=== PATIENT | female | born 1985 | race Caucasian/White ===

== ENCOUNTER → 2016-08-29 | Outpatient (CLI) | payer OTHER ==
[2016-08-29 16:47] LABS: CHLORIDE,CL 109 mmol/L (98-110); SODIUM,NA 141 mmol/L (136-146)
[2016-08-29 17:08] LABS: HIV12 AG/AB 4TH GEN W/REFLEX 0.1 (<1.0)
== END | disposition home or self-care (01) ==
LOC: MW.CHOBGYN 15:57
PROVIDERS: ATTEND Nurse Practitioner Women's Health
DX: Z11.3 Encounter for screening for infections with a predominantly sexual mode of transmission (principal); R19.00 Intra-abdominal and pelvic swelling, mass and lump, unspecified site; Z98.84 Bariatric surgery status
CPT/HCPCS: 36415; 80053; 82607; 82728; 84703; 85025; 86592; 87389; 87491; 87591; G0145

== ENCOUNTER → 2016-09-02 | Outpatient (CLI) | payer OTHER ==
--- NOTE | 2016-09-02 10:08 | US ---
EXAMINATION: Limited abdominal ultrasound HISTORY: Swelling COMPARISON: None TECHNIQUE: Grayscale and color Doppler images obtained of the midline abdomen. FINDINGS: There is no definite defect within the abdominal wall. No obvious subcutaneous mass. IMPRESSION: 1. No definite abdominal wall hernia, if confirmation is needed consider CT or MRI.
== END ==
LOC: MW.US 08:40
PROVIDERS: ATTEND Nurse Practitioner Women's Health
DX: R19.00 Intra-abdominal and pelvic swelling, mass and lump, unspecified site (principal)
CPT/HCPCS: 76700; 76700-26

== ENCOUNTER → 2016-10-03 | Outpatient (CLI) | payer OTHER | LOC: MW.CHOBGYN 12:00 | PROVIDERS: ATTEND Nurse Practitioner Women's Health | DX: D64.9 Anemia, unspecified (principal); E53.8 Deficiency of other specified B group vitamins; Z87.42 Personal history of other diseases of the female genital tract | CPT/HCPCS: 81025 ==

== ENCOUNTER 2017-07-25 15:54 | Emergency (ER) | payer BC, OTHER ==
--- NOTE | 2017-07-25 16:48 | EDM.PDOC ---
ED HPI GENERAL MEDICAL PROBLEM - General Chief Complaint: Lower Extremity Injury/Pain Stated Complaint: RT KNEE HURTS Time Seen by Provider: 07/25/17 16:44 Source of Information: Reports: Patient - History of Present Illness INITIAL COMMENTS - FREE TEXT/NARRATIVE: HISTORY AND PHYSICAL: History of present illness: [Patient presents with right knee pain she rates 4 out of 10 nonradiating no redness warmth or swelling no open lesion States she has a chronic knee condition since childhood in which her knee locks , yesterday, she was lifting moving some furniture as she was going up some steps her knee locked.. she fell down striking her right knee, it remained in this "locked" position almost sounding like more like a patellar subluxation. She then heard a pop and was able to use her knee again however she is afraid to bear weight on it due to discomfort. No fever nausea vomiting chills sweats no redness warmth or exudate no open lesion no chest pain shortness breath headache dizziness palpitation no bowel or urine symptoms ] Review of systems: As per history of present illness and below otherwise all systems reviewed and negative. Past medical history: As per history of present illness and as reviewed below otherwise noncontributory. Surgical history: As per history of present illness and as reviewed below otherwise noncontributory. Social history: No reported history of drug or alcohol abuse. Family history: As per history of present illness and as reviewed below otherwise noncontributory. Physical exam: HEENT: Atraumatic, normocephalic, pupils reactive, negative for conjunctival pallor or scleral icterus, mucous membranes moist, throat clear, neck supple, nontender, trachea midline. Lungs: Clear to auscultation, breath sounds equal bilaterally, chest nontender. Heart: S1S2, regular, negative for clicks, rubs, or JVD. Abdomen: Soft, nondistended, nontender. Negative for masses or hepatosplenomegaly. Negative for costovertebral tenderness. Pelvis: Stable nontender. Genitourinary: Deferred. Rectal: Deferred. Extremities: Atraumatic, negative for cords or calf pain. Neurovascular unremarkable. Right lower extremity hip and ankle and affected right knee no swelling redness warmth or open lesion full range of passive motion some mild discomfort entire limb is neurovascularly intact Neuro: Awake, alert, oriented. Cranial nerves II through XII unremarkable. Cerebellum unremarkable. Motor and sensory unremarkable throughout. Exam nonfocal. Diagnostics: [Right knee 3 views Patient declines hCG as she is on Mirena ] Therapeutics: [Rest ice ibuprofen ]Alexx wrap Crutches nonweightbearing Follow-up with sore throat Impression: [Right knee pain] Small effusion Definitive disposition and diagnosis as appropriate pending reevaluation and review of above. right knee Pain Score (Numeric/FACES): 8 - Related Data Allergies Allergy/AdvReac Type Severity Reaction Status Date / Time No Known Allergies Allergy Verified 07/25/17 16:23 Home Meds: Home Meds . 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) Other OB/BYN History: Musculoskeletal History: Reports: None Neurological History: Reports: None Psychiatric History: Reports: None Endocrine/Metabolic History: Reports: None Hematologic History: Reports: Anesthesia Reaction Immunologic History: Reports: None Oncologic (Cancer) History: Reports: None Dermatologic History: Reports: None - Past Surgical History Head Surgeries/Procedures: Reports: None HEENT Surgical History: Reports: None Cardiovascular Surgical History: Reports: None Respiratory Surgical History: Reports: None GI Surgical History: Reports: Bariatric Procedure, Other (See Below) Other GI Surgeries/Procedures: Gastric bypass Female Surgical History: Reports: None Endocrine Surgical History: Reports: None Neurological Surgical History: Reports: None Musculoskeletal Surgical History: Reports: None Oncologic Surgical History: Reports: None Dermatological Surgical History: Reports: None Social & Family History - Family History Family Medical History: Noncontributory - Tobacco Use Smoking Status *Q: Never Smoker Second Hand Smoke Exposure: No - Caffeine Use Caffeine Use: Reports: None - Recreational Drug Use Recreational Drug Use: Yes Recreational Drug Type: Reports: Marijuana/Hashish Recreational Drug Use Frequency: Daily Review of Systems - Review of Systems Review Of Systems: ROS reveals no pertinent complaints other than HPI. ED EXAM, GENERAL - Physical Exam Exam: See Below Course - Vital Signs Last Recorded V/S: Last Vital Signs Temp 96.4 F 07/25/17 16:23 Pulse 57 L 07/25/17 16:23 Resp 18 07/25/17 16:23 BP 130/58 L 07/25/17 16:23 Pulse Ox 98 07/25/17 16:23 - Orders/Labs/Meds Orders: Active Orders 24 hr Category Date Time Status Knee 3V Rt [CR] Stat Exams 07/25/17 16:44 Taken Departure - Departure Time of Disposition: 17:33 Disposition: Home, Self-Care 01 Condition: Good Clinical Impression: Knee pain - Discharge Information Referrals: PCP,None [Primary Care Provider] - Forms: ED Department Discharge Additional Instructions: Alexx wrap Crutches Nonweightbearing Ice 20 minute intervals 3 times daily as needed Ibuprofen 400 mg 3 times daily 7-10 days Follow-up with orthopedist Work note provided Call number below for appropriate follow-up [facility] [address], [address] [place] [address] my orthopedic The following information is given to patients seen in the emergency department who are being discharged to home. This information is to outline your options for follow-up care. We provide all patients seen in our emergency department with a follow-up referral. The need for follow-up, as well as the timing and circumstances, are variable depending upon the specifics of your emergency department visit. If you don't have a primary care physician on staff, we will provide you with a referral. We always advise you to contact your personal physician following an emergency department visit to inform them of the circumstance of the visit and for follow-up with them and/or the need for any referrals to a consulting specialist. The emergency department will also refer you to a specialist when appropriate. This referral assures that you have the opportunity for follow-up care with a specialist. All of these measure are taken in an effort to provide you with optimal care, which includes your follow-up. Under all circumstances we always encourage you to contact your private physician who remains a resource for coordinating your care. When calling for follow-up care, please make the office aware that this follow-up is from your recent emergency room visit. If for any reason you are refused follow-up, please contact the [facility] emergency department at and asked to speak to the emergency department charge nurse. - My Orders Last 24 Hours: My Active Orders 07/25/17 16:44 Knee 3V Rt [CR] Stat - Assessment/Plan Last 24 Hours: My Active Orders 07/25/17 16:44 Knee 3V Rt [CR] Stat
--- NOTE | 2017-07-26 13:18 | CR ---
EXAM DATE: 07/25/17 PATIENT'S AGE: 31 Patient: CHAIM WILLIAMSON Facility: [place], [place] Site . Site : 1985 Study: XRay Knee Right [id number]/20/2018 5:21:16 PM Ordering Physician: Doctor Calvert Final Report: INDICATION: pain, felt like it "popped" when carrying a box up stairs TECHNIQUE: Three views of the right knee COMPARISON: None FINDINGS: Bones: No fractures or bone lesions. Joint spaces: Small right knee joint effusion. Soft tissues: Unremarkable. IMPRESSION: Small right knee joint effusion. No acute bony abnormality Dictated by Félix Gomez MD @ 07/25/2017 5:28:50 PM Dictated by: Félix Gomez MD @ 07/25/2017 17:28:55 (Electronic Signature) Report Signed by Proxy. MTDRina
== END 2017-07-25 17:45 | disposition home or self-care (01) ==
LOC: MW.ED 15:54
DX: M25.561 Pain in right knee (principal); M25.461 Effusion, right knee; W10.8XXA Fall (on) (from) other stairs and steps, initial encounter
CPT/HCPCS: 73562-26-RT; 73562-RT; 99282; 99283

== ENCOUNTER 2018-09-10 20:55 | Emergency (ER) | payer BC, OTHER ==
[2018-09-10] MEDS ORDERED: Sodium Chloride 0.9% 2.5 ML Syringe FLUSH PRN (20:57)
[2018-09-10] MEDS ORDERED: Sodium Chloride 0.9% 10 ML Syringe FLUSH PRN (20:57)
[2018-09-10] MEDS ORDERED: Sodium Chloride 0.9% 1,000 ML IV ONE (20:59)
[2018-09-10] MEDS ORDERED: Morphine 2 MG/ML Syringe IVPUSH ONE (20:59)
[2018-09-10] MEDS ORDERED: Ondansetron 4 MG/2 ML SDV IVPUSH ONE (20:59)
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
[2018-09-10 21:30] LABS: CHLORIDE,CL 108 mmol/L (98-107); SODIUM,NA 140 mmol/L (136-145)
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
[2018-09-10] MEDS ORDERED: Iopamidol 755 MG/ML 500 ML Multipack Bottle IVPUSH ONE (23:08)
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
== END 2018-09-11 01:04 | disposition home or self-care (01) ==
LOC: MW.ED 20:55
DX: S80.12XA Contusion of left lower leg, initial encounter (principal); S80.11XA Contusion of right lower leg, initial encounter; V43.52XA Car driver injured in collision with other type car in traffic accident, initial encounter
CPT/HCPCS: 36415; 70450; 71045; 71260; 72125; 73590; 74177; 80053; 83690; 85025; 85610; 93005; 96361; 96374; 96375; 99285; J2270; J2405; J7040; Q9967; 99284